=== PATIENT | male | born 1955 | race Caucasian/White ===

== ENCOUNTER → 2025-01-08 | Outpatient (CLI) | payer MEDICARE, BC | END | disposition home or self-care (01) | LOC: RESCLI 11:04 | PROVIDERS: ATTEND Internal Medicine | DX: I48.91 Unspecified atrial fibrillation (principal); D49.0 Neoplasm of unspecified behavior of digestive system; F41.9 Anxiety disorder, unspecified; E78.5 Hyperlipidemia, unspecified; I10 Essential (primary) hypertension; E63.9 Nutritional deficiency, unspecified; E53.8 Deficiency of other specified B group vitamins; K21.9 Gastro-esophageal reflux disease without esophagitis; E11.9 Type 2 diabetes mellitus without complications; E55.9 Vitamin D deficiency, unspecified; J30.2 Other seasonal allergic rhinitis; G62.9 Polyneuropathy, unspecified ==